=== PATIENT | male | born 1960 | race Caucasian/White ===

== ENCOUNTER → 2016-12-11 | Outpatient (CLI) | payer OTHER, MEDICARE ==
[~2016-12-11] MED LIST: ADAL40KI SQ; AZAT50TA10 PO; FOLI-17 PO; HYDR-3307 PO; HYDR200T PO; METH2.5T PO; OMEP-110 PO; OXYC10TA6 PO; PRED25PO10 PO; PRED5TAB PO; PREG100C PO
== END | disposition home or self-care (01) ==
LOC: CFH 12:03
PROVIDERS: ATTEND Nurse Practitioner Primary Care
DX: R22.40 Localized swelling, mass and lump, unspecified lower limb (principal); M79.89 Other specified soft tissue disorders

== ENCOUNTER → 2016-12-17 | Outpatient (CLI) | payer OTHER, MEDICARE | END | disposition home or self-care (01) | LOC: CFH 10:04 | PROVIDERS: ATTEND Nurse Practitioner Primary Care | DX: M13.861 Other specified arthritis, right knee (principal); E55.9 Vitamin D deficiency, unspecified; E78.2 Mixed hyperlipidemia; K21.9 Gastro-esophageal reflux disease without esophagitis; R01.1 Cardiac murmur, unspecified; R76.9 Abnormal immunological finding in serum, unspecified; Z79.51 Long term (current) use of inhaled steroids; R22.40 Localized swelling, mass and lump, unspecified lower limb ==

== ENCOUNTER → 2016-12-22 | Outpatient (CLI) | payer OTHER, MEDICARE | LOC: CFH 14:48 | PROVIDERS: ATTEND Nurse Practitioner Primary Care | DX: Z02.9 Encounter for administrative examinations, unspecified (principal) ==

== ENCOUNTER → 2016-12-29 | Outpatient (CLI) | payer OTHER, MEDICARE | END | disposition home or self-care (01) | LOC: CFH 07:41 | PROVIDERS: ATTEND Nurse Practitioner Primary Care | DX: M17.11 Unilateral primary osteoarthritis, right knee (principal); M71.21 Synovial cyst of popliteal space [Baker], right knee; M25.461 Effusion, right knee; M79.4 Hypertrophy of (infrapatellar) fat pad; E78.2 Mixed hyperlipidemia; K21.9 Gastro-esophageal reflux disease without esophagitis; G89.29 Other chronic pain; E55.9 Vitamin D deficiency, unspecified; Z79.51 Long term (current) use of inhaled steroids ==

== ENCOUNTER → 2017-10-01 | Outpatient (CLI) | payer OTHER, MEDICARE ==
[~2017-10-01] MED LIST changes: -AZAT50TA10 PO; +AZAT50TA20 PO
== END | disposition home or self-care (01) ==
LOC: CFH 06:42
PROVIDERS: ATTEND Orthopaedic Surgery
DX: M65.872 Other synovitis and tenosynovitis, left ankle and foot (principal); M19.072 Primary osteoarthritis, left ankle and foot

== ENCOUNTER → 2017-11-09 | Outpatient (CLI) | payer OTHER, MEDICARE | LOC: CFH 15:33 | PROVIDERS: ATTEND Nurse Practitioner Primary Care | DX: R07.89 Other chest pain (principal) | CPT/HCPCS: 71046 ==

== ENCOUNTER → 2020-05-24 | Outpatient (CLI) | payer OTHER ==
[~2020-05-24] MED LIST changes: +GADOTERATE 10 MMOL/20 ML SYR ONE; +HYDR-3246 PO; -HYDR-3307 PO; -HYDR200T PO; +HYDR200T72 PO
== END | disposition home or self-care (01) ==
LOC: RAD 09:54
PROVIDERS: ATTEND Internal Medicine Rheumatology
DX: J32.9 Chronic sinusitis, unspecified (principal); J34.89 Other specified disorders of nose and nasal sinuses; M35.2 Behcet's disease
CPT/HCPCS: 70553; A9575